=== PATIENT | female | born 1985 | race Caucasian/White ===

== ENCOUNTER → 2016-06-05 | Outpatient (CLI) | payer BC ==
--- NOTE | ~2016-06-05 | NDGEN ---
PATIENT'S NAME: S[facility]AN [facility] AGE: 30 Y [address] ROOM: [place] [id number] LOCATION: [facility] ADMIT DATE: 06/05/2016 Neurodiagnostics DISCHARGE DATE: FAMILY PHYSICIAN: PHYSICIAN, NO ATTENDING PHYSICIAN: GIOVANI MATHIS PROCEDURE: ELECTROENCEPHALOGRAM DATE OF PROCEDURE: 06/05/2016 TIME: 10:40 a.m. INDICATION: This EEG was done to rule out any evidence of seizure activity or epileptiform activity. DESCRIPTION: This was a standard 21-lead EEG which was done with hyperventilation and photic stimulation. The general background rhythm revealed a normal sinusoidal pattern of 8 to 10 Hz of theta to alpha activity. Alpha activity was clearly present when the patient was alert, but slower theta activity was seen with the patient sleeping and snoring at that time. Photic stimulation did not change the general background rhythm, and hyperventilation did not induce any evidence of epileptiform activity. The alpha and theta activity remained stable throughout the whole recording. No epileptiform features were seen, and no seizures were recorded. IMPRESSION: This is a normal awake and sleep EEG. MD JANET CRUZ/martha /[id number] dtt: 06/12/16 1556 , SUSANNA MCCLAIN dtd: 06/06/16 1748
== END | disposition disaster alternative care site (69) ==
LOC: GNEU 06-04 09:00
DX: R56.9 Unspecified convulsions (principal)